=== PATIENT | male | born 1980 | race Caucasian/White ===

== ENCOUNTER 2018-02-21 11:42 | Day surgery (SDC) | payer BC ==
[~2018-02-21] VITALS: Ht 162.6 cm; Wt 79.5 kg
[2018-02-21] VITALS (8 sets, daily range): BP systolic 103–146; BP diastolic 56–75
[2018-02-21] MEDS ORDERED: [UNRECOGNIZED DRUG - REMARK] (12:12)
[2018-02-21] MEDS ORDERED: GEMF600T4 PO (12:13)
[2018-02-21] MEDS ORDERED: LIDOcaine Viscous 15ml cup ONE (12:31)
[2018-02-21] MEDS ORDERED: fentaNYL/PF 50MCG/1 ML 2ML syringe ONE (12:31)
[2018-02-21] MEDS ORDERED: MIDAZolam 5mg/5ml vial ONE (12:31)
[2018-02-21] MEDS ORDERED: iohexol 300 MG/1 ML 50ml polymer ONE (12:31)
[2018-02-21] MEDS ORDERED: diphenhydrAMINE 50 mg/ml inj ONE (12:31)
[2018-02-21] MEDS ORDERED: glucagon, human recombinant 1mg kit ONE (12:32)
== END 2018-02-21 14:26 | disposition home or self-care (01) ==
LOC: GI LAB 11:42
PROVIDERS: ATTEND Internal Medicine Gastroenterology
DX: Z46.59 Encounter for fitting and adjustment of other gastrointestinal appliance and device (principal)
CPT/HCPCS: 43260; 74328; 99152; J2250; J3010; J7030; A4620; J1200; J1610; Q9967